=== PATIENT | female | born 1955 | race Caucasian/White ===

== ENCOUNTER 2023-01-18 13:56 | Outpatient (CLI) | payer MEDICARE | END 2023-01-18 13:57 | disposition home or self-care (01) | LOC: BICMAMMO 13:56 | PROVIDERS: ATTEND Nurse Practitioner | DX: Z13.820 Encounter for screening for osteoporosis (principal); M81.0 Age-related osteoporosis without current pathological fracture; Z78.0 Asymptomatic menopausal state | CPT/HCPCS: 77080 ==